=== PATIENT | female | born 1965 | race Caucasian/White ===

== ENCOUNTER → 2018-11-30 08:27 | Outpatient (CLI) | payer OTHER, SELFPAY ==
[2018-11-30 10:11] LABS: Cholesterol 160 mg/dL (140-199); Glucose 84 mg/dL (70-100); HDL Cholesterol 60 mg/dL (40-60); LDL Cholesterol Calculated 82 mg/dL (<100); Triglycerides 88 mg/dL (35-150)
[2018-11-30 11:00] LABS: Thyroid Stimulating Hormone 1.82 uIU/mL (0.47-4.68)
== END ==
PROVIDERS: PCP Family Medicine; Visit Provider Family Medicine
DX: E78.5 Hyperlipidemia, unspecified (principal); R89.9 Unspecified abnormal finding in specimens from other organs, systems and tissues; Z13.29 Encounter for screening for other suspected endocrine disorder
CPT/HCPCS: 36415; 80061; 82947; 84443

== ENCOUNTER 2019-01-14 13:50 | Emergency (ER) | payer OTHER, SELFPAY ==
[2019-01-14 13:52] VITALS: BP 128/89; PULSE 69; RESP 12; TEMP 36.9; O2SAT 99; BMI 22.4
[2019-01-14 14:51] LABS: Bacteria Urine Occasional (0-1); Culture Indicated Urine Specimen Cultured; RBC Urine 0-1/HPF (0-5/HPF); Squamous Epithelial Cell Urine 0-1 /HPF (0-5/HPF); Transitional Epi Cells Urine 0-1/HPF (0-5/HPF); WBC Urine 5-10/HPF (0-5/HPF)
[2019-01-14 15:33] LABS: Add Manual Diff / Slide Review NO; Basophils Absolute Auto 100 /uL (0-100); Eosinophils Absolute Auto 100 /uL (0-450); Eosinophils Percent Auto 1.1 % (2-4); Hematocrit 36.6 % (36-46); Hemoglobin 12.3 g/dL (12.0-16.0); Lymphocytes Absolute Auto 2200 /uL (1100-4500); Lymphocytes Percent Auto 22.7 % (25-40); Mean Corpuscular HGB Conc 33.5 % (30-36); Mean Corpuscular Hemoglobin 30.6 PG (26-34); Mean Corpuscular Volume 91.4 fL (80-100); Monocytes Absolute Auto 700 /uL (0-900); Monocytes Percent Auto 7.2 % (3-14); Neutrophils Absolute Auto 6500 /uL (1500-7000); Platelet Count 286 X10^3/uL (150-400); Red Blood Cell Count 4.01 X10^6/uL (4.0-5.2); Red Cell Distribution Width 12.8 % (11.6-14.8); White Blood Cell Count 9.5 X10^3/uL (4.5-11.0)
[2019-01-14 15:36] LABS: INR 1.1 (0.9-1.3); Prothrombin Time 12.6 SECONDS (10.1-12.7)
[2019-01-14 15:39] LABS: PTT Partial Thromboplastin Tim 29 SECONDS (26.4-36.2)
[2019-01-14 15:40] LABS: Alanine Aminotransferase 25 IU/L (9-52); Albumin 4.3 g/dL (3.5-5.0); Albumin Globulin Ratio 1.5 (1.0-2.8); Alkaline Phosphatase 51 U/L (38-126); Aspartate Aminotransferase 25 IU/L (14-36); BUN Creatinine Ratio 31.4 (6-22); Bilirubin Total 1.3 mg/dL (0.2-1.3); Blood Urea Nitrogen 22 mg/dL (7-17); Calcium 9.4 mg/dL (8.4-10.2); Carbon Dioxide 27 mmol/L (22-32); Chloride 103 mmol/L (98-107); Estimated Glomerular Filt Rate > 60.0 mL/min (>60); Globulin 2.9 g/dL (1.7-4.1); Glucose 89 mg/dL (70-100); HEMOLYSIS < 15 (0-50); Lipase 118 U/L (23-300); Potassium 4.1 mmol/L (3.4-5.1); Sodium 139 mmol/L (137-145); Total Protein 7.2 g/dL (6.3-8.2)
--- NOTE | 2019-01-14 16:36 | ED.ABDPAIN ---
HPI - Abdominal Pain <LALITA Rodriguez - Last Filed: 01/14/19 23:31> General Chief Complaint: Abdominal Pain Stated Complaint: pain in lower left side through to back, x4days Time Seen by Provider: 01/14/19 15:57 Source: patient Mode of arrival: ambulatory Limitations: no limitations History of Present Illness HPI narrative: 50-year-old female, with a past medical history a hysterectomy on estrogen, complains of left lower quadrant pain after eating for the past 4 days. 3/10 aching pain x 3 days that is better when she doesn't eat and worse at night. Pain radiates to left flank. Associated chills, decreased appetite, and nausea with episodes. Denies vomiting, diarrhea, hematuria, dysuria, or chest pain. Related Data Home Medications Medication Instructions Recorded Confirmed estriol/dhea VAGINAL .qd 12/19/18 12/19/18 progesterone PO 12/19/18 12/19/18 Previous Rx's Medication Instructions Recorded acyclovir 200 mg capsule 200 mg PO QDAY #90 cap 12/20/18 cephalexin 500 mg PO BID #14 tab 01/14/19 Allergies Allergy/AdvReac Type Severity Reaction Status Date / Time hydrocodone [HYDROCODONE] Allergy Severe Hives Unverified 01/14/19 14:00 Sulfa (Sulfonamide Allergy Unknown Unverified 12/19/18 09:19 Antibiotics) [SULFA (SULFONAMIDE ANTIBIOTICS)] acetaminophen [ACETAMINOPHEN] AdvReac Unknown Unverified 01/14/19 14:00 Review of Systems <LALITA Rodriguez - Last Filed: 01/14/19 23:31> Constitutional Denies chills, Denies fever(s), Denies lethargy and Denies weakness Eyes Denies change in vision, Reports eye discharge, Reports irritation and Denies loss of vision ENT Ears, Nose, Mouth, and Throat: Denies sore throat Cardiovascular Denies chest pain, Denies irregular heart rhythm, Denies lightheadedness, Denies palpitations, Denies dyspnea, Denies dyspnea on exertion and Denies orthopnea Respiratory Denies cough, Denies dyspnea, Denies dyspnea on exertion and Denies wheezing Gastrointestinal Gastrointestinal: Reports abdominal pain (LLQ), Reports change in bowel habits (Decreased bowel movement, however patient has decreased PO intake), Denies diarrhea, Reports nausea and Denies vomiting Genitourinary Denies hematuria, Denies flank pain, Denies urinary incontinence and Denies urinary urgency Musculoskeletal Denies numbness and Denies tingling Integumentary/Breasts Denies pruritus, Denies erythema, Denies rash and Denies wounds Neurologic Denies confusion, Denies loss of vision, Denies numbness, Denies tingling and Denies weakness Psychiatric Denies anxiety and Denies confusion Endocrine Denies palpitations Hematologic/Lymphatic Denies easy bruising Allergic/Immunologic Denies wheezing PFSH <LALITA Rodriguez - Last Filed: 01/14/19 23:31> Surgical History H/O hysterectomy for benign disease (Chronic) Status post hysterectomy Status post knee surgery Status post knee surgery Status post knee surgery Status post knee surgery Social History Smoking Status: Never smoker Social History Smoking Status: Never smoker Exam <LALITA Rodriguez - Last Filed: 01/14/19 23:31> Initial Vital Signs Initial Vital Signs: Vital Signs Temperature 98.5 F 01/14/19 13:52 Pulse Rate 69 01/14/19 13:52 Respiratory Rate 12 01/14/19 13:52 Blood Pressure 128/89 01/14/19 13:52 Pulse Oximetry 99 01/14/19 13:52 Const General: cooperative and well developed Nutritional Appearance: well nourished Orientation: alert, awake, oriented x3 and not confused [facility] Head: normocephalic and atraumatic Ears: external ears normal Nose: external nose normal and No nasal discharge Mouth: oral mucosae normal and moist mucous membranes Eyes General: appearance normal, both eyes and all related structures Eyelids: eyelids normal Conjunctivae: conjunctivae normal Sclera: sclerae normal Pupils: PERRL EOM: EOM intact bilaterally Neck Neck: normal visual inspection, trachea midline, No lymphadenopathy, No midline deformity and No JVD Lymphatic: No lymphedema Chest Chest: normal inspection of the chest Resp Effort & Inspection: normal respiratory effort, able to speak in complete sentences, no respiratory distress and no use of accessory muscles Auscultation: clear to auscultation bilaterally, no rales, no rhonchi and no wheezes Cardio Rate: regular rate Rhythm: regular rhythm Heart Sounds: no click, no gallops, no murmurs and no rubs Pulses: normal peripheral pulses GI Inspection: non-distended Palpation: soft, no hepatosplenomegaly, No guarding, No pulsatile mass and No tender Auscultation: normal bowel sounds Other: Pain not present on exam, as patient states it is only present after she eats. Back/Spine/Pelvis Back: No CVA tenderness Cervical Spine: cervical ROM normal and No pain with cervical ROM Skin General: no rashes or lesions noted, No jaundice and No petechiae Neuro General: alert, oriented x3, gait normal and no focal motor deficits Speech: speech normal Extrem General: full ROM, no clubbing, cyanosis or edema, no pedal edema and no calf tenderness Psych Appearance: well kempt Mental Status: mental status grossly normal Attitude: cooperative Thought Content: normal and suicidality Judgment: judgment good <Jeannine De La Garza DO - Last Filed: 01/16/19 18:30> Initial Vital Signs Initial Vital Signs: Vital Signs Temperature 98.5 F 01/14/19 13:52 Pulse Rate 69 01/14/19 13:52 Respiratory Rate 12 01/14/19 13:52 Blood Pressure 128/89 01/14/19 13:52 Pulse Oximetry 99 01/14/19 13:52 Course <LALITA Rodriguez - Last Filed: 01/14/19 23:31> Course Narrative: Discussed with patient the risks and benefits of obtaining an abdominal CT. Patient stated that at one point she had an allergy to something they gave her an in the IV during imaging. Discussed pre treatment for allergy before CT contrast. Patient preferred to have CT done after discussing risks. Patient called her at home as she was given Benadryl. Orders Ordered: Discontinued Medications Diphenhydramine HCl (Benadryl) 50 mg IV NOW ONE Stop: 01/14/19 17:06 Last Admin: 01/14/19 17:16 Dose: 50 mg Sodium Chloride (Normal Saline 0.9%) 1,000 mls @ 1,000 mls/hr IV BOLUS ONE Stop: 01/14/19 17:44 Last Infusion: 01/14/19 18:20 Dose: 0 mls/hr Admin: 01/14/19 17:16 Dose: 1,000 mls/hr Sodium Chloride (Normal Saline 0.9%) 1,000 mls @ 1,000 mls/hr IV BOLUS ONE Stop: 01/14/19 18:42 Last Admin: 01/14/19 21:40 Dose: Not Given Methylprednisolone (Solu-Medrol 125 Mg Vial) 125 mg IV NOW ONE Stop: 01/14/19 17:06 Last Admin: 01/14/19 17:16 Dose: 125 mg Consultations Consultation #1: Consulted with Dr. De La Garza who agrees with plan of care. Vital Signs - 8 hr 01/14/19 18:25 Pulse Rate 60 Respiratory Rate 16 Blood Pressure [Right Arm] 120/76 Pulse Oximetry 100 <Jeannine De La Garza DO - Last Filed: 01/16/19 18:30> Orders Ordered: Discontinued Medications Diphenhydramine HCl (Benadryl) 50 mg IV NOW ONE Stop: 01/14/19 17:06 Last Admin: 01/14/19 17:16 Dose: 50 mg Sodium Chloride (Normal Saline 0.9%) 1,000 mls @ 1,000 mls/hr IV BOLUS ONE Stop: 01/14/19 17:44 Last Infusion: 01/14/19 18:20 Dose: 0 mls/hr Admin: 01/14/19 17:16 Dose: 1,000 mls/hr Sodium Chloride (Normal Saline 0.9%) 1,000 mls @ 1,000 mls/hr IV BOLUS ONE Stop: 01/14/19 18:42 Last Admin: 01/14/19 21:40 Dose: Not Given Methylprednisolone (Solu-Medrol 125 Mg Vial) 125 mg IV NOW ONE Stop: 01/14/19 17:06 Last Admin: 01/14/19 17:16 Dose: 125 mg Vital Signs - 8 hr 01/14/19 18:25 Pulse Rate 60 Respiratory Rate 16 Blood Pressure [Right Arm] 120/76 Pulse Oximetry 100 MDM - Abdominal Pain <LALITA Rodriguez - Last Filed: 01/14/19 23:31> Differential Diagnosis Differential diagnosis: Likely abdominal pain, gastroenteritis and other ([place]) Medical Records Attestation: I reviewed the patient's medical records. Lab Data Attestation: I reviewed the patient's lab results. Result diagrams: 01/14/19 15:22 01/14/19 15:22 Lab Results 01/14/19 01/14/19 01/14/19 Range/Units 14:37 15:22 15:22 WBC 9.5 (4.5-11.0) X10^3/uL RBC 4.01 (4.0-5.2) X10^6/uL Hgb 12.3 (12.0-16.0) g/dL Hct 36.6 (36-46) % MCV 91.4 (80-100) fL MCH 30.6 (26-34) PG MCHC 33.5 (30-36) % RDW 12.8 (11.6-14.8) % Plt Count 286 (150-400) X10^3/uL Neut % (Auto) 68.0 (50-75) % Lymph % (Auto) 22.7 L (25-40) % [place] % (Auto) 7.2 (3-14) % Eos % (Auto) 1.1 L (2-4) % Baso % (Auto) 1.0 (0-2) % Neut # (Auto) 6500 (3648-8136) /uL Lymph # (Auto) 2200 (6488-5672) /uL [place] # (Auto) 700 (0-900) /uL Eos # (Auto) 100 (0-450) /uL Baso # (Auto) 100 (0-100) /uL PT 12.6 (10.1-12.7) SECONDS INR 1.1 (0.9-1.3) APTT 29 (26.4-36.2) SECONDS Sodium (137-145) mmol/L Potassium (3.4-5.1) mmol/L Chloride (98-107) mmol/L Carbon Dioxide (22-32) mmol/L BUN (7-17) mg/dL Creatinine (0.52-1.04) mg/dL Estimated GFR (>60) mL/min BUN/Creatinine Ratio (6-22) Glucose (70-100) mg/dL Calcium (8.4-10.2) mg/dL Total Bilirubin (0.2-1.3) mg/dL AST (14-36) IU/L ALT (9-52) IU/L Alkaline Phosphatase (38-126) U/L Total Protein (6.3-8.2) g/dL Albumin (3.5-5.0) g/dL Globulin (1.7-4.1) g/dL Albumin/Globulin Ratio (1.0-2.8) Lipase (23-300) U/L Urine RBC 0-1/hpf (0-5/HPF) Urine WBC 5-10/hpf H (0-5/HPF) Ur Squamous Epith Cells 0-1 /hpf (0-5/HPF) Ur Transition Epith Cell 0-1/hpf (0-5/HPF) Urine Bacteria Occasional (0-1) (None) Ur Culture Indicated? Specimen cultured 01/14/19 Range/Units 15:22 WBC (4.5-11.0) X10^3/uL RBC (4.0-5.2) X10^6/uL Hgb (12.0-16.0) g/dL Hct (36-46) % MCV (80-100) fL MCH (26-34) PG MCHC (30-36) % RDW (11.6-14.8) % Plt Count (150-400) X10^3/uL Neut % (Auto) (50-75) % Lymph % (Auto) (25-40) % [place] % (Auto) (3-14) % Eos % (Auto) (2-4) % Baso % (Auto) (0-2) % Neut # (Auto) (9003-3842) /uL Lymph # (Auto) (7649-4990) /uL [place] # (Auto) (0-900) /uL Eos # (Auto) (0-450) /uL Baso # (Auto) (0-100) /uL PT (10.1-12.7) SECONDS INR (0.9-1.3) APTT (26.4-36.2) SECONDS Sodium 139 (137-145) mmol/L Potassium 4.1 (3.4-5.1) mmol/L Chloride 103 (98-107) mmol/L Carbon Dioxide 27 (22-32) mmol/L BUN 22 H (7-17) mg/dL Creatinine 0.70 (0.52-1.04) mg/dL Estimated GFR > 60.0 (>60) mL/min BUN/Creatinine Ratio 31.4 H (6-22) Glucose 89 (70-100) mg/dL Calcium 9.4 (8.4-10.2) mg/dL Total Bilirubin 1.3 (0.2-1.3) mg/dL AST 25 (14-36) IU/L ALT 25 (9-52) IU/L Alkaline Phosphatase 51 (38-126) U/L Total Protein 7.2 (6.3-8.2) g/dL Albumin 4.3 (3.5-5.0) g/dL Globulin 2.9 (1.7-4.1) g/dL Albumin/Globulin Ratio 1.5 (1.0-2.8) Lipase 118 (23-300) U/L Urine RBC (0-5/HPF) Urine WBC (0-5/HPF) Ur Squamous Epith Cells (0-5/HPF) Ur Transition Epith Cell (0-5/HPF) Urine Bacteria (None) Ur Culture Indicated? Point of care testing: Urine Dip Bedside Urine Glucose Negative Bedside Urine Bilirubin - Negative Bedside Urine Ketone - Negative Urine Specific [place] 1.025 Bedside Urine Occult Blood +/- Bedside Urine pH 6.0 Bedside Urine Urobilinogen - Negative Bedside Urine Nitrite - Negative Bedside Urine Leukocytes + [address] scan - abdomen: Radiologist's impression: BISHOP [place] [id number] CT Scan Report Signed Patient: Josie Hastings [facility]#: [id number] : 1965Acct:[id number] Age/Sex: 53 / FDate of Service: 01/14/19 Loc: ED Accession Number: [id number] Procedure: CT abdomen pelvis w con Ordering Provider: Ange Mooney PROCEDURE: CT ABDOMEN PELVIS W CON INDICATIONS: LLQ pain after eating. TECHNIQUE: After the administration of intravenous contrast, 5 mm thick sections acquired from the diaphragm to the symphysis. 5 mm coronal and sagittal reformats were acquired. For radiation dose reduction, the following was used: automated exposure control, adjustment of mA and/or kV according to patient size. The patient was premedicated prior to this study for a prior severe reaction to iodine. COMPARISON: None. FINDINGS: Image quality: Excellent. ABDOMEN: Lung bases: Lung bases are clear. Heart size is normal. Solid organs: Liver is normal in size and enhancement. Gallbladder is partially collapsed at the time of this study. Biliary system is non dilated. Pancreas enhances normally. Spleen is normal in size and enhancement. No adrenal nodules. Kidneys demonstrate normal size and enhancement, without hydronephrosis. Peritoneum and bowel: In this patient with this given history, scrutiny is given to the sigmoid colon. No significant diverticulosis is seen. No significant active inflammatory changes are seen. Bowel loops demonstrate normal wall thickness and caliber. No free fluid or air. There is a moderate amount of stool seen within the colon. Incidental note is made of a normal-appearing appendix. Nodes and vessels: No retroperitoneal or mesenteric adenopathy by size criteria. Aorta and inferior vena cava are normal in size. Miscellaneous: No ventral hernias. PELVIS: Genitourinary: Bladder wall thickness is normal. This patient is status post hysterectomy. No adnexal masses are seen. Miscellaneous: No inguinal hernias or adenopathy. Bones: No suspicious bony lesions. No vertebral body compression fractures. IMPRESSION: No significant sigmoid colon abnormality is seen. There is a moderate amount of stool seen within the colon. Please correlate with an underlying history of constipation. Incidental note is made of: Hysterectomy Normal appendix Dictated by: Noel Sanz M.D. on 01/14/2019 at 16:50 Approved by: Noel Sanz M.D. on 01/14/2019 at 16:52 MDM Narrative Medical decision making narrative: Unclear origin of abdominal, differential includes autoimmune gastrointestinal disease (pain with eating, LLQ pain), UTI (LE+ on urinalysis) , functional abdominal pain (negative labs and imaging). Strict return precautions given. Discussed follow-up with primary care for possible colonoscopy. <Jeannine De La Garza, DO - Last Filed: 01/16/19 18:30> Lab Data Lab Results 01/14/19 01/14/19 01/14/19 Range/Units 14:37 15:22 15:22 WBC 9.5 (4.5-11.0) X10^3/uL RBC 4.01 (4.0-5.2) X10^6/uL Hgb 12.3 (12.0-16.0) g/dL Hct 36.6 (36-46) % MCV 91.4 (80-100) fL MCH 30.6 (26-34) PG MCHC 33.5 (30-36) % RDW 12.8 (11.6-14.8) % Plt Count 286 (150-400) X10^3/uL Neut % (Auto) 68.0 (50-75) % Lymph % (Auto) 22.7 L (25-40) % [place] % (Auto) 7.2 (3-14) % Eos % (Auto) 1.1 L (2-4) % Baso % (Auto) 1.0 (0-2) % Neut # (Auto) 6500 (4630-7699) /uL Lymph # (Auto) 2200 (0483-1118) /uL [place] # (Auto) 700 (0-900) /uL Eos # (Auto) 100 (0-450) /uL Baso # (Auto) 100 (0-100) /uL PT 12.6 (10.1-12.7) SECONDS INR 1.1 (0.9-1.3) APTT 29 (26.4-36.2) SECONDS Sodium (137-145) mmol/L Potassium (3.4-5.1) mmol/L Chloride (98-107) mmol/L Carbon Dioxide (22-32) mmol/L BUN (7-17) mg/dL Creatinine (0.52-1.04) mg/dL Estimated GFR (>60) mL/min BUN/Creatinine Ratio (6-22) Glucose (70-100) mg/dL Calcium (8.4-10.2) mg/dL Total Bilirubin (0.2-1.3) mg/dL AST (14-36) IU/L ALT (9-52) IU/L Alkaline Phosphatase (38-126) U/L Total Protein (6.3-8.2) g/dL Albumin (3.5-5.0) g/dL Globulin (1.7-4.1) g/dL Albumin/Globulin Ratio (1.0-2.8) Lipase (23-300) U/L Urine RBC 0-1/hpf (0-5/HPF) Urine WBC 5-10/hpf H (0-5/HPF) Ur Squamous Epith Cells 0-1 /hpf (0-5/HPF) Ur Transition Epith Cell 0-1/hpf (0-5/HPF) Urine Bacteria Occasional (0-1) (None) Ur Culture Indicated? Specimen cultured 01/14/19 Range/Units 15:22 WBC (4.5-11.0) X10^3/uL RBC (4.0-5.2) X10^6/uL Hgb (12.0-16.0) g/dL Hct (36-46) % MCV (80-100) fL MCH (26-34) PG MCHC (30-36) % RDW (11.6-14.8) % Plt Count (150-400) X10^3/uL Neut % (Auto) (50-75) % Lymph % (Auto) (25-40) % [place] % (Auto) (3-14) % Eos % (Auto) (2-4) % Baso % (Auto) (0-2) % Neut # (Auto) (0543-3434) /uL Lymph # (Auto) (1061-6918) /uL [place] # (Auto) (0-900) /uL Eos # (Auto) (0-450) /uL Baso # (Auto) (0-100) /uL PT (10.1-12.7) SECONDS INR (0.9-1.3) APTT (26.4-36.2) SECONDS Sodium 139 (137-145) mmol/L Potassium 4.1 (3.4-5.1) mmol/L Chloride 103 (98-107) mmol/L Carbon Dioxide 27 (22-32) mmol/L BUN 22 H (7-17) mg/dL Creatinine 0.70 (0.52-1.04) mg/dL Estimated GFR > 60.0 (>60) mL/min BUN/Creatinine Ratio 31.4 H (6-22) Glucose 89 (70-100) mg/dL Calcium 9.4 (8.4-10.2) mg/dL Total Bilirubin 1.3 (0.2-1.3) mg/dL AST 25 (14-36) IU/L ALT 25 (9-52) IU/L Alkaline Phosphatase 51 (38-126) U/L Total Protein 7.2 (6.3-8.2) g/dL Albumin 4.3 (3.5-5.0) g/dL Globulin 2.9 (1.7-4.1) g/dL Albumin/Globulin Ratio 1.5 (1.0-2.8) Lipase 118 (23-300) U/L Urine RBC (0-5/HPF) Urine WBC (0-5/HPF) Ur Squamous Epith Cells (0-5/HPF) Ur Transition Epith Cell (0-5/HPF) Urine Bacteria (None) Ur Culture Indicated? Point of care testing: Urine Dip Bedside Urine Glucose Negative Bedside Urine Bilirubin - Negative Bedside Urine Ketone - Negative Urine Specific [place] 1.025 Bedside Urine Occult Blood +/- Bedside Urine pH 6.0 Bedside Urine Urobilinogen - Negative Bedside Urine Nitrite - Negative Bedside Urine Leukocytes + 70 Esterase Discharge Plan Departure Patient Disposition: Home Clinical Impression: UTI (urinary tract infection) Qualifiers: Urinary tract infection type: acute cystitis Hematuria presence: without hematuria Qualified Code(s): N30.00 - Acute cystitis without hematuria Abdominal pain Qualifiers: Abdominal location: left lower quadrant Qualified Code(s): R10.32 - Left lower quadrant pain Discharge Date/Time: 01/14/19 18:32 Interventions: ED Discharge Assessment Last Done: 01/14/19 18:32 Instructions: DI for Urinary Tract Infection (UTI), DI for Abdominal Pain-Adult Activity Restrictions/Additional Instructions: Thank you for the opportunity to provide care team today. Urine labs and CT scan today were negative. Her urine showed a possible UTI, the culture takes 2 days to come, you will be called if your antibiotics need to be changed. As discussed it is unclear the cause of the abdominal pain, please follow-up with their primary care provider for possible referral for colonoscopy. You can also try taking an antacid before you eat. If he developed chest pain, shortness of breath, syncope, or severe pain. Prescriptions: New cephalexin 500 mg tablet 500 mg PO BID Qty: 14 RF: 0 No Action progesterone PO RF: 0 estriol/dhea Vaginal .qd RF: 0 acyclovir [Zovirax] 200 mg capsule 200 mg PO QDAY Qty: 90 RF: 0 Referrals: Reyna Ferreira MD [Primary Care Provider] - <Jeannine De La Garza DO - Last Filed: 01/16/19 18:30> Cosign ED Attending Cosignature Attestation: I was immediately available in the department for consultation. Case was dicussed prior to imaging and afterwards. Changes in urine noted but less likely to be cause of pain. This documentation has been reviewed and I agree with assessment and plan. Supervised by Jeannine De La Garza, DO
--- NOTE | 2019-01-14 16:42 | ED_ITS ---
HPI - Abdominal Pain <LALITA Rodriguez - Last Filed: 01/14/19 23:31> General Chief Complaint: Abdominal Pain Stated Complaint: pain in lower left side through to back, x4days Time Seen by Provider: 01/14/19 15:57 Source: patient Mode of arrival: ambulatory Limitations: no limitations History of Present Illness HPI narrative: 50-year-old female, with a past medical history a hysterectomy on estrogen, complains of left lower quadrant pain after eating for the past 4 days. 3/10 aching pain x 3 days that is better when she doesn't eat and worse at night. Pain radiates to left flank. Associated chills, decreased appetite, and nausea with episodes. Denies vomiting, diarrhea, hematuria, dysuria, or chest pain. Related Data Home Medications Medication Instructions Recorded Confirmed estriol/dhea VAGINAL .qd 12/19/18 12/19/18 progesterone PO 12/19/18 12/19/18 Previous Rx's Medication Instructions Recorded acyclovir 200 mg capsule 200 mg PO QDAY #90 cap 12/20/18 cephalexin 500 mg PO BID #14 tab 01/14/19 Allergies Allergy/AdvReac Type Severity Reaction Status Date / Time hydrocodone [HYDROCODONE] Allergy Severe Hives Unverified 01/14/19 14:00 Sulfa (Sulfonamide Allergy Unknown Unverified 12/19/18 09:19 Antibiotics) [SULFA (SULFONAMIDE ANTIBIOTICS)] acetaminophen [ACETAMINOPHEN] AdvReac Unknown Unverified 01/14/19 14:00 Review of Systems <LALITA Rodriguez - Last Filed: 01/14/19 23:31> Constitutional Denies chills, Denies fever(s), Denies lethargy and Denies weakness Eyes Denies change in vision, Reports eye discharge, Reports irritation and Denies loss of vision ENT Ears, Nose, Mouth, and Throat: Denies sore throat Cardiovascular Denies chest pain, Denies irregular heart rhythm, Denies lightheadedness, Denies palpitations, Denies dyspnea, Denies dyspnea on exertion and Denies orthopnea Respiratory Denies cough, Denies dyspnea, Denies dyspnea on exertion and Denies wheezing Gastrointestinal Gastrointestinal: Reports abdominal pain (LLQ), Reports change in bowel habits (Decreased bowel movement, however patient has decreased PO intake), Denies diarrhea, Reports nausea and Denies vomiting Genitourinary Denies hematuria, Denies flank pain, Denies urinary incontinence and Denies urinary urgency Musculoskeletal Denies numbness and Denies tingling Integumentary/Breasts Denies pruritus, Denies erythema, Denies rash and Denies wounds Neurologic Denies confusion, Denies loss of vision, Denies numbness, Denies tingling and Denies weakness Psychiatric Denies anxiety and Denies confusion Endocrine Denies palpitations Hematologic/Lymphatic Denies easy bruising Allergic/Immunologic Denies wheezing PFSH <LALITA Rodriguez - Last Filed: 01/14/19 23:31> Surgical History H/O hysterectomy for benign disease (Chronic) Status post hysterectomy Status post knee surgery Status post knee surgery Status post knee surgery Status post knee surgery Social History Smoking Status: Never smoker Social History Smoking Status: Never smoker Exam <LALITA Rodriguez - Last Filed: 01/14/19 23:31> Initial Vital Signs Initial Vital Signs: Vital Signs Temperature 98.5 F 01/14/19 13:52 Pulse Rate 69 01/14/19 13:52 Respiratory Rate 12 01/14/19 13:52 Blood Pressure 128/89 01/14/19 13:52 Pulse Oximetry 99 01/14/19 13:52 Const General: cooperative and well developed Nutritional Appearance: well nourished Orientation: alert, awake, oriented x3 and not confused [facility] Head: normocephalic and atraumatic Ears: external ears normal Nose: external nose normal and No nasal discharge Mouth: oral mucosae normal and moist mucous membranes Eyes General: appearance normal, both eyes and all related structures Eyelids: eyelids normal Conjunctivae: conjunctivae normal Sclera: sclerae normal Pupils: PERRL EOM: EOM intact bilaterally Neck Neck: normal visual inspection, trachea midline, No lymphadenopathy, No midline deformity and No JVD Lymphatic: No lymphedema Chest Chest: normal inspection of the chest Resp Effort & Inspection: normal respiratory effort, able to speak in complete sentences, no respiratory distress and no use of accessory muscles Auscultation: clear to auscultation bilaterally, no rales, no rhonchi and no wheezes Cardio Rate: regular rate Rhythm: regular rhythm Heart Sounds: no click, no gallops, no murmurs and no rubs Pulses: normal peripheral pulses GI Inspection: non-distended Palpation: soft, no hepatosplenomegaly, No guarding, No pulsatile mass and No tender Auscultation: normal bowel sounds Other: Pain not present on exam, as patient states it is only present after she eats. Back/Spine/Pelvis Back: No CVA tenderness Cervical Spine: cervical ROM normal and No pain with cervical ROM Skin General: no rashes or lesions noted, No jaundice and No petechiae Neuro General: alert, oriented x3, gait normal and no focal motor deficits Speech: speech normal Extrem General: full ROM, no clubbing, cyanosis or edema, no pedal edema and no calf tenderness Psych Appearance: well kempt Mental Status: mental status grossly normal Attitude: cooperative Thought Content: normal and suicidality Judgment: judgment good <Jeannine De La Garza DO - Last Filed: 01/16/19 18:30> Initial Vital Signs Initial Vital Signs: Vital Signs Temperature 98.5 F 01/14/19 13:52 Pulse Rate 69 01/14/19 13:52 Respiratory Rate 12 01/14/19 13:52 Blood Pressure 128/89 01/14/19 13:52 Pulse Oximetry 99 01/14/19 13:52 Course <LALITA Rodriguez - Last Filed: 01/14/19 23:31> Course Narrative: Discussed with patient the risks and benefits of obtaining an abdominal CT. Patient stated that at one point she had an allergy to something they gave her an in the IV during imaging. Discussed pre treatment for allergy before CT contrast. Patient preferred to have CT done after discussing risks. Patient called her at home as she was given Benadryl. Orders Ordered: Discontinued Medications Diphenhydramine HCl (Benadryl) 50 mg IV NOW ONE Stop: 01/14/19 17:06 Last Admin: 01/14/19 17:16 Dose: 50 mg Sodium Chloride (Normal Saline 0.9%) 1,000 mls @ 1,000 mls/hr IV BOLUS ONE Stop: 01/14/19 17:44 Last Infusion: 01/14/19 18:20 Dose: 0 mls/hr Admin: 01/14/19 17:16 Dose: 1,000 mls/hr Sodium Chloride (Normal Saline 0.9%) 1,000 mls @ 1,000 mls/hr IV BOLUS ONE Stop: 01/14/19 18:42 Last Admin: 01/14/19 21:40 Dose: Not Given Methylprednisolone (Solu-Medrol 125 Mg Vial) 125 mg IV NOW ONE Stop: 01/14/19 17:06 Last Admin: 01/14/19 17:16 Dose: 125 mg Consultations Consultation #1: Consulted with Dr. De La Garza who agrees with plan of care. Vital Signs - 8 hr 01/14/19 18:25 Pulse Rate 60 Respiratory Rate 16 Blood Pressure [Right Arm] 120/76 Pulse Oximetry 100 <Jeannine De La Garza DO - Last Filed: 01/16/19 18:30> Orders Ordered: Discontinued Medications Diphenhydramine HCl (Benadryl) 50 mg IV NOW ONE Stop: 01/14/19 17:06 Last Admin: 01/14/19 17:16 Dose: 50 mg Sodium Chloride (Normal Saline 0.9%) 1,000 mls @ 1,000 mls/hr IV BOLUS ONE Stop: 01/14/19 17:44 Last Infusion: 01/14/19 18:20 Dose: 0 mls/hr Admin: 01/14/19 17:16 Dose: 1,000 mls/hr Sodium Chloride (Normal Saline 0.9%) 1,000 mls @ 1,000 mls/hr IV BOLUS ONE Stop: 01/14/19 18:42 Last Admin: 01/14/19 21:40 Dose: Not Given Methylprednisolone (Solu-Medrol 125 Mg Vial) 125 mg IV NOW ONE Stop: 01/14/19 17:06 Last Admin: 01/14/19 17:16 Dose: 125 mg Vital Signs - 8 hr 01/14/19 18:25 Pulse Rate 60 Respiratory Rate 16 Blood Pressure [Right Arm] 120/76 Pulse Oximetry 100 MDM - Abdominal Pain <LALITA Rodriguez - Last Filed: 01/14/19 23:31> Differential Diagnosis Differential diagnosis: Likely abdominal pain, gastroenteritis and other ([place]) Medical Records Attestation: I reviewed the patient's medical records. Lab Data Attestation: I reviewed the patient's lab results. Result diagrams: 01/14/19 15:22 01/14/19 15:22 Lab Results 01/14/19 01/14/19 01/14/19 Range/Units 14:37 15:22 15:22 WBC 9.5 (4.5-11.0) X10^3/uL RBC 4.01 (4.0-5.2) X10^6/uL Hgb 12.3 (12.0-16.0) g/dL Hct 36.6 (36-46) % MCV 91.4 (80-100) fL MCH 30.6 (26-34) PG MCHC 33.5 (30-36) % RDW 12.8 (11.6-14.8) % Plt Count 286 (150-400) X10^3/uL Neut % (Auto) 68.0 (50-75) % Lymph % (Auto) 22.7 L (25-40) % [place] % (Auto) 7.2 (3-14) % Eos % (Auto) 1.1 L (2-4) % Baso % (Auto) 1.0 (0-2) % Neut # (Auto) 6500 (1540-7576) /uL Lymph # (Auto) 2200 (9573-1429) /uL [place] # (Auto) 700 (0-900) /uL Eos # (Auto) 100 (0-450) /uL Baso # (Auto) 100 (0-100) /uL PT 12.6 (10.1-12.7) SECONDS INR 1.1 (0.9-1.3) APTT 29 (26.4-36.2) SECONDS Sodium (137-145) mmol/L Potassium (3.4-5.1) mmol/L Chloride (98-107) mmol/L Carbon Dioxide (22-32) mmol/L BUN (7-17) mg/dL Creatinine (0.52-1.04) mg/dL Estimated GFR (>60) mL/min BUN/Creatinine Ratio (6-22) Glucose (70-100) mg/dL Calcium (8.4-10.2) mg/dL Total Bilirubin (0.2-1.3) mg/dL AST (14-36) IU/L ALT (9-52) IU/L Alkaline Phosphatase (38-126) U/L Total Protein (6.3-8.2) g/dL Albumin (3.5-5.0) g/dL Globulin (1.7-4.1) g/dL Albumin/Globulin Ratio (1.0-2.8) Lipase (23-300) U/L Urine RBC 0-1/hpf (0-5/HPF) Urine WBC 5-10/hpf H (0-5/HPF) Ur Squamous Epith Cells 0-1 /hpf (0-5/HPF) Ur Transition Epith Cell 0-1/hpf (0-5/HPF) Urine Bacteria Occasional (0-1) (None) Ur Culture Indicated? Specimen cultured 01/14/19 Range/Units 15:22 WBC (4.5-11.0) X10^3/uL RBC (4.0-5.2) X10^6/uL Hgb (12.0-16.0) g/dL Hct (36-46) % MCV (80-100) fL MCH (26-34) PG MCHC (30-36) % RDW (11.6-14.8) % Plt Count (150-400) X10^3/uL Neut % (Auto) (50-75) % Lymph % (Auto) (25-40) % [place] % (Auto) (3-14) % Eos % (Auto) (2-4) % Baso % (Auto) (0-2) % Neut # (Auto) (9745-8810) /uL Lymph # (Auto) (4741-2685) /uL [place] # (Auto) (0-900) /uL Eos # (Auto) (0-450) /uL Baso # (Auto) (0-100) /uL PT (10.1-12.7) SECONDS INR (0.9-1.3) APTT (26.4-36.2) SECONDS Sodium 139 (137-145) mmol/L Potassium 4.1 (3.4-5.1) mmol/L Chloride 103 (98-107) mmol/L Carbon Dioxide 27 (22-32) mmol/L BUN 22 H (7-17) mg/dL Creatinine 0.70 (0.52-1.04) mg/dL Estimated GFR > 60.0 (>60) mL/min BUN/Creatinine Ratio 31.4 H (6-22) Glucose 89 (70-100) mg/dL Calcium 9.4 (8.4-10.2) mg/dL Total Bilirubin 1.3 (0.2-1.3) mg/dL AST 25 (14-36) IU/L ALT 25 (9-52) IU/L Alkaline Phosphatase 51 (38-126) U/L Total Protein 7.2 (6.3-8.2) g/dL Albumin 4.3 (3.5-5.0) g/dL Globulin 2.9 (1.7-4.1) g/dL Albumin/Globulin Ratio 1.5 (1.0-2.8) Lipase 118 (23-300) U/L Urine RBC (0-5/HPF) Urine WBC (0-5/HPF) Ur Squamous Epith Cells (0-5/HPF) Ur Transition Epith Cell (0-5/HPF) Urine Bacteria (None) Ur Culture Indicated? Point of care testing: Urine Dip Bedside Urine Glucose Negative Bedside Urine Bilirubin - Negative Bedside Urine Ketone - Negative Urine Specific [place] 1.025 Bedside Urine Occult Blood +/- Bedside Urine pH 6.0 Bedside Urine Urobilinogen - Negative Bedside Urine Nitrite - Negative Bedside Urine Leukocytes + [address] scan - abdomen: Radiologist's impression: BISHOP [place] [id number] CT Scan Report Signed Patient: Josie Hastings [facility]#: [id number] : 1965Acct:[id number] Age/Sex: 53 / FDate of Service: 01/14/19 Loc: ED Accession Number: [id number] Procedure: CT abdomen pelvis w con Ordering Provider: Ange Mooney PROCEDURE: CT ABDOMEN PELVIS W CON INDICATIONS: LLQ pain after eating. TECHNIQUE: After the administration of intravenous contrast, 5 mm thick sections acquired from the diaphragm to the symphysis. 5 mm coronal and sagittal reformats were acquired. For radiation dose reduction, the following was used: automated exposure control, adjustment of mA and/or kV according to patient size. The patient was premedicated prior to this study for a prior severe reaction to iodine. COMPARISON: None. FINDINGS: Image quality: Excellent. ABDOMEN: Lung bases: Lung bases are clear. Heart size is normal. Solid organs: Liver is normal in size and enhancement. Gallbladder is partially collapsed at the time of this study. Biliary system is non dilated. Pancreas enhances normally. Spleen is normal in size and enhancement. No adrenal nodules. Kidneys demonstrate normal size and enhancement, without hydronephrosis. Peritoneum and bowel: In this patient with this given history, scrutiny is given to the sigmoid colon. No significant diverticulosis is seen. No significant active inflammatory changes are seen. Bowel loops demonstrate normal wall thickness and caliber. No free fluid or air. There is a moderate amount of stool seen within the colon. Incidental note is made of a normal-appearing appendix. Nodes and vessels: No retroperitoneal or mesenteric adenopathy by size criteria. Aorta and inferior vena cava are normal in size. Miscellaneous: No ventral hernias. PELVIS: Genitourinary: Bladder wall thickness is normal. This patient is status post hysterectomy. No adnexal masses are seen. Miscellaneous: No inguinal hernias or adenopathy. Bones: No suspicious bony lesions. No vertebral body compression fractures. IMPRESSION: No significant sigmoid colon abnormality is seen. There is a moderate amount of stool seen within the colon. Please correlate with an underlying history of constipation. Incidental note is made of: Hysterectomy Normal appendix Dictated by: Noel Sanz M.D. on 01/14/2019 at 16:50 Approved by: Noel Sanz M.D. on 01/14/2019 at 16:52 MDM Narrative Medical decision making narrative: Unclear origin of abdominal, differential includes autoimmune gastrointestinal disease (pain with eating, LLQ pain), UTI (LE+ on urinalysis) , functional abdominal pain (negative labs and imaging). Strict return precautions given. Discussed follow-up with primary care for possible colonoscopy. <Jeannine D eLa Garza, DO - Last Filed: 01/16/19 18:30> Lab Data Lab Results 01/14/19 01/14/19 01/14/19 Range/Units 14:37 15:22 15:22 WBC 9.5 (4.5-11.0) X10^3/uL RBC 4.01 (4.0-5.2) X10^6/uL Hgb 12.3 (12.0-16.0) g/dL Hct 36.6 (36-46) % MCV 91.4 (80-100) fL MCH 30.6 (26-34) PG MCHC 33.5 (30-36) % RDW 12.8 (11.6-14.8) % Plt Count 286 (150-400) X10^3/uL Neut % (Auto) 68.0 (50-75) % Lymph % (Auto) 22.7 L (25-40) % [place] % (Auto) 7.2 (3-14) % Eos % (Auto) 1.1 L (2-4) % Baso % (Auto) 1.0 (0-2) % Neut # (Auto) 6500 (7281-8809) /uL Lymph # (Auto) 2200 (5703-6949) /uL [place] # (Auto) 700 (0-900) /uL Eos # (Auto) 100 (0-450) /uL Baso # (Auto) 100 (0-100) /uL PT 12.6 (10.1-12.7) SECONDS INR 1.1 (0.9-1.3) APTT 29 (26.4-36.2) SECONDS Sodium (137-145) mmol/L Potassium (3.4-5.1) mmol/L Chloride (98-107) mmol/L Carbon Dioxide (22-32) mmol/L BUN (7-17) mg/dL Creatinine (0.52-1.04) mg/dL Estimated GFR (>60) mL/min BUN/Creatinine Ratio (6-22) Glucose (70-100) mg/dL Calcium (8.4-10.2) mg/dL Total Bilirubin (0.2-1.3) mg/dL AST (14-36) IU/L ALT (9-52) IU/L Alkaline Phosphatase (38-126) U/L Total Protein (6.3-8.2) g/dL Albumin (3.5-5.0) g/dL Globulin (1.7-4.1) g/dL Albumin/Globulin Ratio (1.0-2.8) Lipase (23-300) U/L Urine RBC 0-1/hpf (0-5/HPF) Urine WBC 5-10/hpf H (0-5/HPF) Ur Squamous Epith Cells 0-1 /hpf (0-5/HPF) Ur Transition Epith Cell 0-1/hpf (0-5/HPF) Urine Bacteria Occasional (0-1) (None) Ur Culture Indicated? Specimen cultured 01/14/19 Range/Units 15:22 WBC (4.5-11.0) X10^3/uL RBC (4.0-5.2) X10^6/uL Hgb (12.0-16.0) g/dL Hct (36-46) % MCV (80-100) fL MCH (26-34) PG MCHC (30-36) % RDW (11.6-14.8) % Plt Count (150-400) X10^3/uL Neut % (Auto) (50-75) % Lymph % (Auto) (25-40) % [place] % (Auto) (3-14) % Eos % (Auto) (2-4) % Baso % (Auto) (0-2) % Neut # (Auto) (2947-4158) /uL Lymph # (Auto) (0899-6557) /uL [place] # (Auto) (0-900) /uL Eos # (Auto) (0-450) /uL Baso # (Auto) (0-100) /uL PT (10.1-12.7) SECONDS INR (0.9-1.3) APTT (26.4-36.2) SECONDS Sodium 139 (137-145) mmol/L Potassium 4.1 (3.4-5.1) mmol/L Chloride 103 (98-107) mmol/L Carbon Dioxide 27 (22-32) mmol/L BUN 22 H (7-17) mg/dL Creatinine 0.70 (0.52-1.04) mg/dL Estimated GFR > 60.0 (>60) mL/min BUN/Creatinine Ratio 31.4 H (6-22) Glucose 89 (70-100) mg/dL Calcium 9.4 (8.4-10.2) mg/dL Total Bilirubin 1.3 (0.2-1.3) mg/dL AST 25 (14-36) IU/L ALT 25 (9-52) IU/L Alkaline Phosphatase 51 (38-126) U/L Total Protein 7.2 (6.3-8.2) g/dL Albumin 4.3 (3.5-5.0) g/dL Globulin 2.9 (1.7-4.1) g/dL Albumin/Globulin Ratio 1.5 (1.0-2.8) Lipase 118 (23-300) U/L Urine RBC (0-5/HPF) Urine WBC (0-5/HPF) Ur Squamous Epith Cells (0-5/HPF) Ur Transition Epith Cell (0-5/HPF) Urine Bacteria (None) Ur Culture Indicated? Point of care testing: Urine Dip Bedside Urine Glucose Negative Bedside Urine Bilirubin - Negative Bedside Urine Ketone - Negative Urine Specific [place] 1.025 Bedside Urine Occult Blood +/- Bedside Urine pH 6.0 Bedside Urine Urobilinogen - Negative Bedside Urine Nitrite - Negative Bedside Urine Leukocytes + 70 Esterase Discharge Plan Departure Patient Disposition: Home Clinical Impression: UTI (urinary tract infection) Qualifiers: Urinary tract infection type: acute cystitis Hematuria presence: without hematuria Qualified Code(s): N30.00 - Acute cystitis without hematuria Abdominal pain Qualifiers: Abdominal location: left lower quadrant Qualified Code(s): R10.32 - Left lower quadrant pain Discharge Date/Time: 01/14/19 18:32 Interventions: ED Discharge Assessment Last Done: 01/14/19 18:32 Instructions: DI for Urinary Tract Infection (UTI), DI for Abdominal Pain-Adult Activity Restrictions/Additional Instructions: Thank you for the opportunity to provide care team today. Urine labs and CT sc an today were negative. Her urine showed a possible UTI, the culture takes 2 days to come, you will be called if your antibiotics need to be changed. As discussed it is unclear the cause of the abdominal pain, please follow-up with their primary care provider for possible referral for colonoscopy. You can also try taking an antacid before you eat. If he developed chest pain, shortness of breath, syncope, or severe pain. Prescriptions: New cephalexin 500 mg tablet 500 mg PO BID Qty: 14 RF: 0 No Action progesterone PO RF: 0 estriol/dhea Vaginal .qd RF: 0 acyclovir [Zovirax] 200 mg capsule 200 mg PO QDAY Qty: 90 RF: 0 Referrals: Reyna Ferreira MD [Primary Care Provider] - <Jeannine De La Garza DO - Last Filed: 01/16/19 18:30> Cosign ED Attending Cosignature Attestation: I was immediately available in the department for consultation. Case was dicussed prior to imaging and afterwards. Changes in urine noted but less likely to be cause of pain. This documentation has been reviewed and I agree with assessment and plan. Supervised by Jeannine De La Garza, DO
[2019-01-14] MEDS: diphenhydrAMINE 50 MG/ML VIAL IV (17:16)
[2019-01-14] MEDS: SODIUM CHLORIDE 0.9% 1,000 ML 1000 ML IV (17:16)
[2019-01-14] MEDS: methylPREDNISolone 125 MG/2 ML VIAL IV (17:16)
--- NOTE | 2019-01-14 17:32 | DI.CT.S_ITS ---
PROCEDURE: CT ABDOMEN PELVIS W CON INDICATIONS: LLQ pain after eating. TECHNIQUE: After the administration of intravenous contrast, 5 mm thick sections acquired from the diaphragm to the symphysis. 5 mm coronal and sagittal reformats were acquired. For radiation dose reduction, the following was used: automated exposure control, adjustment of mA and/or kV according to patient size. The patient was premedicated prior to this study for a prior severe reaction to iodine. COMPARISON: None. FINDINGS: Image quality: Excellent. ABDOMEN: Lung bases: Lung bases are clear. Heart size is normal. Solid organs: Liver is normal in size and enhancement. Gallbladder is partially collapsed at the time of this study. Biliary system is non dilated. Pancreas enhances normally. Spleen is normal in size and enhancement. No adrenal nodules. Kidneys demonstrate normal size and enhancement, without hydronephrosis. Peritoneum and bowel: In this patient with this given history, scrutiny is given to the sigmoid colon. No significant diverticulosis is seen. No significant active inflammatory changes are seen. Bowel loops demonstrate normal wall thickness and caliber. No free fluid or air. There is a moderate amount of stool seen within the colon. Incidental note is made of a normal-appearing appendix. Nodes and vessels: No retroperitoneal or mesenteric adenopathy by size criteria. Aorta and inferior vena cava are normal in size. Miscellaneous: No ventral hernias. PELVIS: Genitourinary: Bladder wall thickness is normal. This patient is status post hysterectomy. No adnexal masses are seen. Miscellaneous: No inguinal hernias or adenopathy. Bones: No suspicious bony lesions. No vertebral body compression fractures. IMPRESSION: No significant sigmoid colon abnormality is seen. There is a moderate amount of stool seen within the colon. Please correlate with an underlying history of constipation. Incidental note is made of: Hysterectomy Normal appendix Dictated by: Noel Sanz M.D. on 01/14/2019 at 16:50 Approved by: Noel Sanz M.D. on 01/14/2019 at 16:52
[2019-01-14 18:25] VITALS: BP 120/76; PULSE 60; RESP 16; O2SAT 100
== END 2019-01-14 18:32 | disposition home or self-care (01) ==
PROVIDERS: Emergency Medicine; Emergency Provider Nurse Practitioner; PCP Family Medicine
DX: N30.00 Acute cystitis without hematuria (principal); R10.32 Left lower quadrant pain; R11.0 Nausea
CPT/HCPCS: 36591; 74177; 80053; 81003; 81015; 83690; 85025; 85610; 85730; 87077; 87086; 87186; 96361; 96374; 96375; 99283; 99284; J1200; J2930; Q9967

== ENCOUNTER → 2019-05-10 14:33 | Outpatient (CLI) | payer OTHER, SELFPAY ==
--- NOTE | 2019-05-10 14:35 | DI.RAD.S_ITS ---
PROCEDURE: XR SHOULDER LT MIN 2V INDICATIONS: left shoulder pain TECHNIQUE: 3 views of the shoulder were acquired. COMPARISON: None. FINDINGS: Bones: No fractures or dislocations. No suspicious bony lesions. Visualized ribs appear intact. Incidental lateral downsloping appearance of the acromion Soft tissues: No suspicious soft tissue calcifications. IMPRESSION: No fracture. Lateral downsloping appearance of the acromion. If the patient's pain or other symptoms persist, consider further evaluation with MRI Dictated by: Oliver Urena M.D. on 05/10/2019 at 15:04 Approved by: Oliver Urena M.D. on 05/10/2019 at 15:05
== END ==
PROVIDERS: PCP Family Medicine; Visit Provider Internal Medicine
DX: M25.512 Pain in left shoulder (principal)
CPT/HCPCS: 73030

== ENCOUNTER → 2019-05-18 14:19 | Outpatient (CLI) | payer OTHER, SELFPAY ==
--- NOTE | 2019-05-18 14:21 | DI.MRI.S_ITS ---
PROCEDURE: MR SHOULDER LT WO CON INDICATIONS: Suspected rotator cuff tear TECHNIQUE: Noncontrast oblique coronal T2 fast spin echo with fat saturation, oblique sagittal T1 spin echo and T2 fast spin echo with fat saturation, axial T1 spin echo and T2 fast spin echo with fat saturation through the shoulder. COMPARISON: None. FINDINGS: Image quality: Excellent. Rotator cuff: There is tendinosis and low to moderate articular and bursal surface partial-thickness tear involving distal supraspinatus and infraspinatus near their insertions on the humeral head extending to musculotendinous junction. Distal subscapularis tendinosis is seen. No full-thickness rotator cuff tendon rupture. Sagittal images demonstrate no significant rotator cuff muscle atrophy. Bones and bursae: No bone marrow contusions or fractures. 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 No pathologic subacromial-subdeltoid or subcoracoid bursal fluid is present. Capsule and soft tissues: In the absence of intra-articular contrast, t there is suggestion of focal superior anterior labral tear at 12 to 1:00 position. The glenohumeral ligaments appear intact. The long head of the biceps tendon demonstrates mild thickening and heterogeneous intrasubstance T2 hyperintense signal consistent with tendinosis and low-grade partial-thickness tear. The rotator interval appears normal, without fibrosis. The coracohumeral ligament is normal in thickness. IMPRESSION: 1. Tendinosis and low to moderate grade articular and bursal surface partial-thickness tear involving distal supraspinatus and infraspinatus extending to musculotendinous junction. Distal infraspinatus tendinosis. 2. Mild acromioclavicular joint osteoarthritis. 3. Suggestion of focal superior anterior labral tear at 12 to 1:00 position. Tendinosis and low-grade intrasubstance partial thickness involving proximal intra-articular portion of long head biceps tendon. Dictated by: Melchor Lee M.D. on 05/20/2019 8:27 Approved by: Melchor Lee M.D. on 05/20/2019 at 8:32
--- NOTE | 2019-05-18 14:21 | DI.MG.S_ITS ---
BILATERAL DIGITAL SCREENING MAMMOGRAM 3D/2D WITH CAD: 05/18/2019 CLINICAL: Routine screening. Comparison is made to exams dated: 08/27/2009 mammogram, 11/08/2010 mammogram, and 11/07/2012 mammogram - [facility]. There are scattered fibroglandular elements in both breasts. Current study was also evaluated with a Computer Aided Detection (CAD) system. No significant masses, calcifications, or other findings are seen in either breast. There has been no significant interval change. IMPRESSION: NEGATIVE There is no mammographic evidence of malignancy. A 1 year screening mammogram is recommended. This exam was interpreted at Station ID: [id number]. NOTE: For mammograms, a report in lay terms will be sent to the patient. Approximately 15% of breast malignancies will not be visualized mammographically. In the management of a palpable breast mass, a negative mammogram must not discourage biopsy of a clinically suspicious lesion. Electronically Signed By: Carmen carpio/[email or web address]:05/20/2019 10:26:28 letter sent: Normal Exam ACR BI-RADS Category 1: Negative 3341F
== END ==
PROVIDERS: PCP Family Medicine; Visit Provider Family Medicine
DX: M25.512 Pain in left shoulder (principal); M19.012 Primary osteoarthritis, left shoulder; M75.112 Incomplete rotator cuff tear or rupture of left shoulder, not specified as traumatic
CPT/HCPCS: 73221; 77063; 77067

== ENCOUNTER 2019-08-12 08:35 | Day surgery (SDC) | payer OTHER, SELFPAY ==
[2019-08-12] VITALS (7 sets, daily range): BP systolic 86–121; BP diastolic 57–74; PULSE 65–781; RESP 12–98; TEMP 36.3–37.2; O2SAT 96–100; BMI 22.6
[2019-08-12] MEDS: SODIUM CHLORIDE 0.9% 1,000 ML 200 ML IV ×2 (09:32→10:32)
--- NOTE | 2019-08-12 09:59 | PM.HP.1 ---
History of Present Illness History of Present Illness Date Patient Seen: 08/12/19 Time Patient Seen: 10:00 Chief complaint: [id number] Narrative: Patient presents for colorectal screening. They have never had any previous examination for such. No personal or family history of colon cancer. On further history denies any recent gastrointestinal symptoms. No nausea, vomiting, abdominal pain, loss of appetite, unexplained weight loss, change in bowel habits, diarrhea, constipation, melena, hematochezia, or bright red blood per rectum. Patient History Surgical History H/O hysterectomy for benign disease (Chronic) Status post hysterectomy Status post knee surgery Status post knee surgery Status post knee surgery Status post knee surgery Family & Social History Social History: household members spouse Tobacco & Substance use: Smoking Status Never smoker Meds Home Medications and Allergies Home Medications Medication Instructions Recorded Confirmed Type acyclovir [Zovirax] 200 mg PO QDAY PRN 08/12/19 08/12/19 History estradiol 1.5 mg PO SEEINSTR 08/12/19 08/12/19 History progesterone micronized 50 mg PO QAM 08/12/19 08/12/19 History Allergies Allergy/AdvReac Type Severity Reaction Status Date / Time hydrocodone [HYDROCODONE] Allergy Severe nausea, Verified 08/12/19 09:14 itch Sulfa (Sulfonamide Allergy Unknown swelling, Verified 08/12/19 09:14 Antibiotics) rash, itch [SULFA (SULFONAMIDE ANTIBIOTICS)] Review of Systems Review of Systems ROS Unobtainable: All systems reviewed & are unremarkable except as noted in HPI and below Exam Vital Signs (past 8 hours): - 08/12/19 09:22 Temperature 99.0 F Pulse Rate 65 Respiratory Rate 20 Blood Pressure 117/74 Pulse Oximetry 99 Oxygen Delivery Method Room Air Narrative Exam Narrative: General-no acute distress, well nourished HEENT-moist mucous membranes, no scleral icterus Neck-supple, no lymphadenopathy Chest- non labored respirations, clear to auscultation bilaterally Cardiac-regular rate no peripheral edema Abdomen-soft, nontender, non distended Extremities-warm, well perfused Neurological-alert and oriented, no focal deficits Assessment & Plan Assessment and plan (1) Screening for colon cancer: Current visit: Yes Status: Acute Assessment & Plan narrative: The patient requires colorectal screening and colonoscopy is recommended. Technical details were discussed. Risks, benefits, alternatives explained. Risks including but not limited to myocardial infarction, aspiration, bleeding, pain, missed lesion, incomplete examination, need for further radiographic studies, colonic perforation, and need for major abdominal surgery were discussed. All questions were answered to their satisfaction, and they are in agreement with this plan.
[2019-08-12] MEDS: fentaNYL 250 MCG/5 ML INJ IV (10:02)
[2019-08-12] MEDS: MIDAZOLAM 5 MG/5 ML VIAL IV (10:03)
--- NOTE | 2019-08-12 10:32 | PM.OP.ENDO ---
Operative Date/Time/Diagnoses Date of procedure: 08/12/19 Time of procedure: 10:33 Pre-op diagnosis: Screening colonoscopy Post-op diagnosis: same Procedure & Clinicians Study performed: Colonoscopy Same procedure as scheduled: Yes Indications: 54-year-old woman no prior colonoscopy presents for screening endoscopy Surgeon: Adan Taveras Procedure Notes SCOAP/Timeout: Performed Procedure in detail: Patient placed in left lateral decubitus position. Time out was performed. Procedural sedation was administered with Versed and Fentanyl. A rectal exam demonstrated no external hemorrhoids no internal masses. Colonoscopy scope was placed into the rectum and advanced through the colon to the cecum. The ileocecal valve was identified. The scope was then slowly withdrawn examining colon thoroughly in all directions. The colonoscopy was notable for the following 1. Sigmoid diverticulosis 2. External hemorrhoid 3. No masses or polyps 4. Quality of prep excellent Scope withdrawal time: 7 Sedation minutes: 25 Findings: diverticulosis Specimen(s): none sent Complications: none Impression: Diverticulosis Post-procedure Recommendations: Colonscopy in 10 years Disposition: same day surgery
--- NOTE | 2019-08-12 10:52 | SUR.PHASEI ---
denies light-headedness, dizziness; tolerating PO well. Awake, oriented, drowsy
--- NOTE | 2019-08-12 10:59 | SUR.PHASEI ---
awake and talking, tolerated procedure well, no pain or nausea, report given.
== END 2019-08-12 11:30 | disposition home or self-care (01) ==
PROVIDERS: PCP Family Medicine; Visit Provider Surgery
PROC: 0DJD8ZZ Inspection of Lower Intestinal Tract, Via Natural or Artificial Opening Endoscopic (ICD-10-PCS; CPT 45378; principal; 2019-08-12 10:15)
DX: Z12.11 Encounter for screening for malignant neoplasm of colon (principal); K57.30 Diverticulosis of large intestine without perforation or abscess without bleeding; K64.4 Residual hemorrhoidal skin tags
CPT/HCPCS: 45378; 99152; J2250; J3010

== ENCOUNTER → 2021-04-14 11:51 | Outpatient (CLI) | payer OTHER, SELFPAY ==
--- NOTE | 2021-05-12 10:20 | PM.CARDMON.1 ---
Back Hand Report Referral & Results Date Patient Seen: 04/14/21 Requesting provider: Reyna Ferreira Indication: Palpitations Duration of monitoring (days): 14 Diary information: There were 18 patient triggered events and 18 patient diary entries All of these patient events were associated variably with (within 45 seconds) sinus rhythm, PACs, and PVCs Data: Minimum heart rate identified was 50 beats per minute at 05:54 on 04/19/2021 Maximum heart rate was 157 beats per minute at 11:04 on 04/21/2021 Less than 1% of identified beats were ventricular or supraventricular ectopic in origin, which would classify them as rare. Impression: 2 week cardiac nurse practitioner showing rare PACs and PVCs without clear correlation with patient's sense of palpitations based on patient events. No other significant dysrhythmias identified on this study
== END ==
PROVIDERS: PCP Family Medicine; Referring Provider Family Medicine; Visit Provider Family Medicine
DX: R00.2 Palpitations (principal)
CPT/HCPCS: 93246; 93248

== ENCOUNTER → 2021-05-10 07:06 | Outpatient (CLI) | payer OTHER, SELFPAY ==
[2021-05-10 08:55] LABS: Cholesterol 205 mg/dL (140-199); Glucose 101 mg/dL (70-100); HDL Cholesterol 83 mg/dL (40-60); LDL Cholesterol Calculated 109 mg/dL (<100); Triglycerides 64 mg/dL (35-150)
[2021-05-10 09:03] LABS: Free T4, Direct Thyroxine 0.78 ng/dL (0.78-2.19)
[2021-05-10 09:17] LABS: Thyroid Stimulating Hormone 2.15 uIU/mL (0.47-4.68)
== END ==
PROVIDERS: PCP Family Medicine; Referring Provider Family Medicine; Visit Provider Family Medicine
DX: Z00.00 Encounter for general adult medical examination without abnormal findings (principal); R00.2 Palpitations
CPT/HCPCS: 36415; 80061; 82947; 84439; 84443; 84481

== ENCOUNTER → 2022-09-14 06:57 | Outpatient (CLI) | payer OTHER, SELFPAY ==
[2022-09-14 09:45] LABS: Alanine Aminotransferase 35 IU/L (<35); Alkaline Phosphatase 42 U/L (38-126); Aspartate Aminotransferase 33 IU/L (14-36); BUN Creatinine Ratio 23.5 (6-22); Blood Urea Nitrogen 16 mg/dL (7-17); Carbon Dioxide 27 mmol/L (22-32); Chloride 103 mmol/L (98-107); Cholesterol 184 mg/dL (140-199); Estimated Glomerular Filt Rate > 60 mL/min (>60); Glucose 87 mg/dL (70-100); HDL Cholesterol 53 mg/dL (40-60); HEMOLYSIS < 15 (0-50); LDL Cholesterol Calculated 114 mg/dL (<100); Potassium 4.6 mmol/L (3.4-5.1); Sodium 137 mmol/L (137-145); Total Protein 7.2 g/dL (6.3-8.2); Triglycerides 83 mg/dL (35-150)
[2022-09-16 16:46] LABS: Albumin 4.4 g/dL (3.5-5.0); Albumin Globulin Ratio 1.6 (1.0-2.8); Globulin 2.8 g/dL (1.7-4.1)
== END ==
PROVIDERS: PCP Family Medicine; Referring Provider Physician Assistant; Visit Provider Physician Assistant
DX: Z13.220 Encounter for screening for lipoid disorders (principal); Z13.6 Encounter for screening for cardiovascular disorders; R73.01 Impaired fasting glucose
CPT/HCPCS: 36415; 80053; 80061

== ENCOUNTER → 2023-02-24 08:02 | Outpatient (CLI) | payer OTHER, SELFPAY ==
--- NOTE | 2023-02-24 08:03 | DI.MG.S_ITS ---
BILATERAL DIGITAL SCREENING MAMMOGRAM 3D/2D WITH CAD: 02/24/2023 CLINICAL: Routine screening. Comparison is made to exams dated: 05/18/2019 mammogram - [facility], 11/07/2012 mammogram, and 11/08/2010 mammogram - [facility]. Both breasts are heterogeneously dense, which may obscure small masses (category c / 51-75% glandular tissue). Current study was also evaluated with a Computer Aided Detection (CAD) system. No significant masses, calcifications, or other findings are seen in either breast. There has been no significant interval change. IMPRESSION: NEGATIVE There is no mammographic evidence of malignancy. A 1 year screening mammogram is recommended. Based on the Tyrer Cuzick model (a risk assessment model) the patient's lifetime risk is 9.7% and her 10 year risk is 3.6%. According to the ACR, ACS, and NCCN guidelines, an annual breast MRI exam along with mammogram is recommended if the patient's lifetime risk is 20% or greater. This exam was interpreted at Station ID: [id number]. NOTE: For mammograms, a report in lay terms will be sent to the patient. Approximately 15% of breast malignancies will not be visualized mammographically. In the management of a palpable breast mass, a negative mammogram must not discourage biopsy of a clinically suspicious lesion. Electronically Signed By: Khang sanford/[email or web address]:02/24/2023 15:39:10 letter sent: Normal Exam ACR BI-RADS Category 1: Negative 3341F
== END ==
PROVIDERS: PCP Family Medicine; Referring Provider Family Medicine; Visit Provider Family Medicine
DX: Z12.31 Encounter for screening mammogram for malignant neoplasm of breast (principal)
CPT/HCPCS: 77063; 77067

== ENCOUNTER → 2025-08-19 11:32 | Outpatient (CLI) | payer OTHER, SELFPAY ==
--- NOTE | 2025-08-19 11:34 | DI.RAD.S_ITS ---
PROCEDURE: XR SHOULDER RT MIN 2V INDICATIONS: Right shoulder pain-no injury TECHNIQUE: 3 views of the shoulder were acquired. COMPARISON: [facility], CR, XR SHOULDER LT MIN 2V, 05/10/2019, 14:31. FINDINGS: Bones: No fractures or dislocations. No suspicious bony lesions. Visualized ribs appear intact. Coracoclavicular and acromioclavicular intervals are maintained. Mild degenerative changes of the right acromioclavicular joint. Soft tissues: No suspicious soft tissue calcifications. IMPRESSION: No acute bony abnormality. Mild right acromioclavicular osteoarthrosis. Dictated by: Khang Silva M.D. on 08/19/2025 at 11:58 Approved by: Khang Silva M.D. on 08/19/2025 at 11:59
== END ==
PROVIDERS: PCP Family Medicine; Referring Provider Family Medicine; Visit Provider Nurse Practitioner Family
DX: S46.911A Strain of unspecified muscle, fascia and tendon at shoulder and upper arm level, right arm, initial encounter (principal); M19.011 Primary osteoarthritis, right shoulder
CPT/HCPCS: 73030